=== PATIENT | male | born 1995 | race Caucasian/White ===

== ENCOUNTER 2018-03-07 15:02 | Emergency (ER) | payer MEDICAID, OTHER ==
[~2018-03-07 15:02] MED LIST: IBUP600T22 PO
--- NOTE | 2018-03-07 15:05 | ER Report ---
History and Physical Time Seen By MD: 15:05 HPI/ROS CHIEF COMPLAINT: Right dorsal hand dog bite HISTORY OF PRESENT ILLNESS: Patient is a 22-year-old male here with complaints of a right hand dog bite with swelling on the dorsal aspect of the hand. Patient reports that his dog bit him and that his dog is up-to-date on rabies im munizations and he is up-to-date on tetanus immunizations. Patient is afebrile, has mild erythema surrounding several small puncture wounds on the dorsal aspect of his right hand primarily on the 2nd and 3rd digits. Patient is afebrile and in no acute distress. REVIEW OF SYSTEMS: Constitutional: No fever, no chills. Musculoskeletal: + tenderness on dorsal right hand Skin: mild erythema of right dorsal hand Neurological: NV intact Allergies: Coded Allergies: No Known Drug Allergies (Unverified , 03/07/18) Home Meds Active Scripts Amoxicillin/Pot Clav 875-125 Mg Tab (AUGMENTIN 875-125 TABLET) 1 Each Tablet, 1 TAB PO Q12H for 7 Days, #14 TAB Prov:OBED EDUARDO DO 03/07/18 Hx Smoking: No Smoking Status: Never Smoker Constitutional Vital Sign - Last 24 Hours 03/07/18 15:07 Temp 98.7 Pulse 105 Resp 12 B/P (MAP) 165/118 Pulse Ox 100 O2 Delivery Room Air Physical Exam General Appearance: The patient is alert, has no immediate need for airway protection and no signs of toxicity. NAD Neurological: NV intact Skin: + mild erythema of dorsal right hand digits 2-4 small puncture wounds Musculoskeletal: + TTP right dorsal hand DIFFERENTIAL DIAGNOSIS: After history and physical exam differential diagnosis was considered for animal bite, cellulitis, flexor tendon synovitis, foreign body Medical Decision Making EKG/Imaging Imaging Technique: HAND LIMITED RIGHT HISTORY: Dog bite Comparison studies: None FINDINGS: There is no acute fracture. The right hand is maintained. No radiodense foreign body. IMPRESSION: 1. No acute osseous process. No radiodense foreign body. ED Course/Re-evaluation ED Course Patient is a 22-year-old male here with complaints of right hand pain after a dog bite on Wednesday. Patient reports that it was his dog that bit him and the dog is immunized against rabies, he is immunized and up-to-date against T that. He came in today because he had mild edema and erythema at the site of the bites. X-ray imaging showed no acute foreign bodies or fractures. Patient was started on Augmentin 7 day course and advised to return promptly if he developed any fevers, worsening edema, swelling. Patient was advised to follow up with PCP in one the next several days. Decision to Disposition Date: Mar 07, 2018 Decision to Disposition Time: 15:46 Depart Departure Latest Vital Signs Vital Signs Date Time Temp Pulse Resp B/P (MAP) Pulse Ox O2 Delivery O2 Flow Rate FiO2 03/07/18 15:07 98.7 105 12 165/118 100 Room Air Impression: Primary Impression: Animal bite of hand Condition: Improved Disposition: HOME OR SELF-CARE New Scripts Amoxicillin/Pot Clav 875-125 Mg Tab (AUGMENTIN 875-125 TABLET) 1 Each Tablet 1 TAB PO Q12H for 7 Days, #14 TAB Prov: OBED EDUARDO DO 03/07/18 Patient Instructions: Amoxicillin/Clavulanate Potassium (By mouth), Animal Bite (ED) Additional Instructions: Please take one tablet twice daily of Augmentin for 7 days. Please return promptly if you develop fevers, worsening pain, swelling, redness tracking up. Hand or arm, numbness, hand discoloration. Please follow-up with your family doctor in the next 3 days for follow-up evaluation and care. OBED EDUARDO DO Mar 07, 2018 15:05
[2018-03-07 15:07] VITALS: BP 165/118
[2018-03-07] MEDS ORDERED: AMOX/CLAV 875 MG TAB PO ONE (15:15)
--- NOTE | 2018-03-07 15:40 | RADIOLOGY IMAGING REPORT ---
FACILITY: [facility] [place] PATIENT NAME: Dong Hawkins : 1995 MR: [id number] V: [id number] EXAM DATE: ORDERING PHYSICIAN: OBED EDUARDO TECHNOLOGIST: Location: [facility] Patient: Dong Hawkins : 1995 Visit/Account:[id number] Date of Sevice: 03/07/2018 Technique: HAND LIMITED RIGHT HISTORY: Dog bite Comparison studies: None FINDINGS: There is no acute fracture. The right hand is maintained. No radiodense foreign body. IMPRESSION: 1. No acute osseous process. No radiodense foreign body. Report Dictated By: Gwyn Farr DO at 03/07/2018 3:33 PM Report E-Signed By: Gwyn Farr DO at 03/07/2018 3:35 PM WSN:[id number]
[2018-03-07] MEDS ORDERED: AMOX-559 PO (15:41)
== END 2018-03-07 15:47 | disposition home or self-care (01) ==
LOC: ER 15:35
DX: S61.451A Open bite of right hand, initial encounter (principal); W54.0XXA Bitten by dog, initial encounter
CPT/HCPCS: 99283